=== PATIENT | male | born 1980 | race Caucasian/White ===

== ENCOUNTER 2025-04-30 11:18 | Outpatient (CLI) | payer OTHER, SELFPAY ==
--- NOTE | ~2025-04-30 | XR_ITS ---
EXAMINATION: XR hand BI arthritis min 3V, 04/30/2025 11:25 CDT HISTORY: M79.641 - Pain in right hand bilat hand pain COMPARISON: No comparisons available. Findings: No acute fracture or malalignment. No significant degenerative changes. Soft tissues unremarkable. Impression: No acute fracture or malalignment. Reviewed, dictated and finalized at location P. Impression: No acute fracture or malalignment.
--- OUTSIDE RECORDS SUMMARY | 2025-04-30 12:57 | XMS_ITS | Encounter Summary ---
Author Organization [facility] Address Count includes the [facility] [place] [address] Care Team Providers Care Unarmed Security Guard Name Role Phone Cricket García MD Primary Care Provider [phone] Encounter Details Date Type Department Care Team (Late st Contact Info) Description 12/31/2018 Abstract SFL CONVERSION [address] [place] [address] , Generic Conversion, Social History Tobacco Use Types Packs/Day Years Used Date Smoking Tobacco: Never Assessed Sex and Gender Information Value Date Recorded Sex Assigned at Not on file 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
--- OUTSIDE RECORDS SUMMARY | 2025-04-30 12:57 | XMS_ITS | Clinical Summary ---
Author Organization [facility] Address [address] [place] [address] Care Team Providers Care Manager Talent Name Role Phone Cricket García MD Primary Care Provider Allergies No known active allergies Medications fluticasone propionate (FLONASE) 50 MCG/ACT nasal spray 2 sprays by Nasal route daily. Active rOPINIRole (REQUIP) 0.5 MG tablet Take 0.5 mg by mouth nightly. Active acetaminophen (TYLENOL) 500 MG tablet Take 500 mg by mouth every 6 (six) hours as needed for Pain. 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 Gender Identity Not on file Sexual Orientation Not on file Last Filed Vital Signs Vital Sign Reading Time Taken Comments Blood Pressure 116/72 08/06/2022 8:50 AM DRESS DESIGNER Pulse 69 08/06/2022 8:50 AM DRESS DESIGNER Temperature 36.1 C (97 F) 08/06/2022 7:55 AM DRESS DESIGNER Respiratory Rate 16 08/06/2022 8:50 AM DRESS DESIGNER Oxygen Saturation 97% 08/06/2022 8:50 AM DRESS DESIGNER Inhaled Oxygen Concentration - - Weight 72.6 kg (160 lb) 07/30/2022 11:12 AM DRESS DESIGNER Height 170.2 cm (5' 7) 07/30/2022 11:12 AM DRESS DESIGNER Body Mass Index 25.06 07/30/2022 11:12 AM DRESS DESIGNER Plan of Treatment Health Maintenance Due Date Last Done Comments Annual Physical 1984 Hepatitis C 1999 DTaP, Tdap and Td Vaccines (1 - Tdap) 2000 03/21/1985, 11/12/1982, 1981, Additional history exists Hepatitis B Vaccines (1 of 3 - 19+ 3-dose series) 2000 Pneumococcal Vaccine: Pediatrics (0 to 5 Years) and At-Risk Patients (6 to 49 Years) (1 of 2 - PCV) 2000 HPV Vaccines (1 - 3-dose SCDM series) 2008 COVID-19 Vaccine ( - season) 2025 Meningococcal B Vaccine Aged Out No l onger eligible based on patient's age to complete this topic Meningococcal Vaccine Aged Out No jelena rupinder eligible based on patient's age to complete this topic RSV Immunizations Under 20 Months Aged Out No longer eligible based on patient's age to complete this topic Medical Devices Implanted Type Area Fountain Pen Turner Device Identifier Shelf Expiration Date Model / Serial / Lot Tube Tympanostomy Blue 1.14mm Phillips Groet Ear Ultrasil Bevel Tab Sterile - [id number] Implanted:Qty: 1 on 08/06/2022 by Valdo Shi MD at [facility] Tube Implant Left: [facility] 03/30/2032 [id number] / / [id number] Insurance MEDICAID BLUE [place] [employer]UE [employer] Advance Directives * Full Code (Latest Code Status on File) Date Activated Date Inactivated Comments 08/06/2022 7:56 AM 08/06/2022 11:15 AM Care Teams Manager Talent Relationship Specialty Start Date End Date Cricket García MD PCP - General FAMILY PRACTICE 01/01/21
== END 2025-04-30 11:19 | disposition home or self-care (01) ==
PROVIDERS: PCP Family Medicine; Visit Provider Plastic Surgery
DX: M79.641 Pain in right hand (principal); M79.642 Pain in left hand; M65.4 Radial styloid tenosynovitis [de Quervain]
CPT/HCPCS: 73130